=== PATIENT | male | born 1990 | race Caucasian/White ===

== ENCOUNTER 2016-08-14 20:00 | Emergency (ER) | payer OTHER ==
[2016-08-14] MEDS ORDERED: NAPROXEN 375 MG TABLET (FP) PO ONE (20:04)
[2016-08-14 20:09] VITALS: BP 150/65; PULSE 76; TEMP 99; BMI 38.5
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
--- NOTE | 2016-08-14 20:44 | PDOC ---
History of Present Illness - General Chief Complaint: Pain, Acute Stated Complaint: RT KNEE PAIN Time Seen by Provider: 08/14/16 20:04 History Source: Patient Exam Limitations: No Limitations - History of Present Illness Initial Comments: 08/14/16 21:34 08/14/16 21:41 Chief complaint: Right knee pain with increased bruising and swelling History of present illness: Patient is a 26-year-old male with a history of asthma here today complaining of worsening right medial knee pain since last night with increase bruising that is currently more of a reddish hue in the last few days and erythematous and warm to touch. Patient denies any chills or fever. Patient reports that he was originally hit in the right medial knee 6 days ago while playing basketball I another player's knee. He reports that the date of injury the area was tender and a bruise forearm that had turned yellowish purplish and was stating until this morning he noticed that the area was more pronounced of a reddish hue. Reports that area is very painful when he stands on it and is currently a 7 out of 10. Patient did not take anything for pain. Patient and his are concerned that the area has B, more painful and swollen and change in color and temperature of the area. Occurred: reports: other (6 days ago ) Severity: reports: moderate Pain Location: reports: lower extremity (rt. medial knee ) Method of Injury: Yes: direct blow (by another person knee playing basketball ) Modifying Factors: improves with: None Loss of Consciousness: no loss of consciousness Associated Symptoms (Fall): other (pain and bruising to medial rt. knee ) Past History - Past Medical History Allergies/Adverse Reactions: Allergies Allergy/AdvReac Type Severity Reaction Status Date / Time No Known Allergies Allergy Verified 08/14/16 20:06 Home Medications: Ambulatory Orders Cephalexin Monohydrate [Keflex -] 500 mg PO Q6H #28 capsule 08/14/16 Sulfamethoxazole/Trimethoprim [Bactrim Ds -] 1 tab PO BID #14 tablet MDD 2 08/14 Asthma: Yes - Psycho/Social/Smoking Cessation Hx Suicidal Ideation: No Smoking History: Never smoked Review of Systems - Review of Systems Able to Perform ROS?: Yes Constitutional: No: Symptoms Reported HEENTM: No: Symptoms Reported Respiratory: No: Symptoms reported Cardiac (ROS): No: Symptoms Reported ABD/GI: No: Symptoms Reported : No: Symptoms Reported Musculoskeletal: Yes: Joint Pain, Joint Swelling (rt. medial knee noted today ) Integumentary: Yes: Bruising (color is more erythematous today had been purplish and yellowish medial rt. knee), Change in Color, Other (warm to touch ) Neurological: No: Symptoms reported *Physical Exam - Vital Signs Last Vital Signs Temp Pulse Resp BP Pulse Ox 99 F 76 18 150/65 98 08/14/16 20:06 08/14/16 20:06 08/14/16 20:06 08/14/16 20:06 08/14/16 20:06 - Physical Exam General Appearance: Yes: Appropriately Dressed Respiratory/Chest: positive: Lungs Clear, Normal Breath Sounds Cardiovascular: positive: Regular Rhythm, Regular Rate, S1, S2 Vascular Pulses: Dorsalis-Pedis (R): 4+ Extremity: positive: Normal Capillary Refill, Normal Range of Motion (rt. knee ) , Tender (rt. medial knee), Swelling (rt. media knee ) Integumentary: positive: Warm (rt. medial knee area), Erythema (medial knee ), Swelling (rt.medial knee area ), Bruising Neurologic: positive: Normal Response, Respond to painful stimul (rt. knee area ), Responsive ED Treatment Course - LABORATORY CBC & Chemistry Diagram: 08/14/16 21:30 - Medications Given in the ED: ED Medications Discontinued Medications Generic Name Dose Route Start Last Admin Trade Name Freq PRN Reason Stop Dose Admin Naproxen 375 mg 08/14/16 20:04 08/14/16 20:12 Naprosyn - PO 08/14/16 20:05 375 mg ONCE ONE Administration Medical Decision Making - Medical Decision Making 08/14/16 21:44 Patient is a 26-year-old male with a history of asthma here today complaining of worsening right medial knee pain since last night with increase bruising that is currently more of a reddish hue in the last few days and erythematous and warm to touch. Patient denies any chills or fever. Patient reports that he was originally hit in the right medial knee 6 days ago while playing basketball I another player's knee. He reports that the date of injury the area was tender and a bruise forearm that had turned yellowish purplish and was stating until this morning he noticed that the area was more pronounced of a reddish hue. Reports that area is very painful when he stands on it and is currently a 7 out of 10. Patient did not take anything for pain. Patient and his are concerned that the area has B, more painful and swollen and change in color and temperature of the area. He does not have any calf pain. Due to patient's ability to move joint normally do not think that this is a knee joint. Right medial knee pain with swelling cellulitis Plan: cbc with diff bmp crp sed rate IV insert Unasyn 3 gm IV now Right knee x-ray ordered by Dr. Oscar no abnormality noted naprosyn 375mg po ordered by Dr. Oscar will discharge on bactrim DS 1 tab bid for 7 days keflex 500 mg q6 hr for 7 days return to ER if any chills increased redness of right medial knee area or increased pain or inability to bend knee Laboratory Tests 08/14/16 08/14/16 08/14/16 21:30 21:30 21:30 ESR 12 H Sodium 137 Potassium 3.9 Chloride 101 Carbon Dioxide 24 Anion Gap 12 BUN 10 Creatinine 1.1 Random Glucose 169 H Calcium 8.8 C-Reactive Protein 3.4 H 08/14/16 21:54 08/14/16 21:54 08/15/16 11:25 *DC/Admit/Observation/Transfer Diagnosis at time of Disposition: Cellulitis of knee, right Contusion of knee, right Qualifiers: Encounter type: initial encounter Qualified Code(s): S80.01XA - Contusion of right knee, initial encounter - Discharge Dispostion Disposition: HOME Condition at time of disposition: Stable - Prescriptions Prescriptions: Sulfamethoxazole/Trimethoprim [Bactrim Ds -] 1 tab PO BID #14 tablet MDD 2 Cephalexin Monohydrate [Keflex -] 500 mg PO Q6H #28 capsule - Patient Instructions Additional Instructions: Return here in 2 days for reevaluation or sooner if any fever, chills, worsening pain or decreased ability to move right knee Use crutches for ambulation Take Ibuprofen as needed for pain as directed by chemical supervisor Patient voiced understanding of discharge instructions and all questions were answered
[2016-08-14] MEDS ORDERED: AMPICILLIN NA/SULBACTAM NA 3 GM VIAL IM ONE (21:32)
[2016-08-14] MEDS ORDERED: AMPICILLIN NA/SULBACTAM NA 3 GM in SODIUM CHLORIDE 100 ML IVPB ONE (22:05)
[2016-08-14 22:15] LABS: CALCIUM 8.8 mg/dL (8.5-10.1); CREATININE 1.1 mg/dL (0.7-1.3)
== END 2016-08-14 23:48 | disposition home or self-care (01) ==
LOC: JERFT 20:00 → JER 20:00 → JERFT 23:48
DX: S80.01XA Contusion of right knee, initial encounter (principal); L03.115 Cellulitis of right lower limb; W50.0XXA Accidental hit or strike by another person, initial encounter; Y93.67 Activity, basketball; Y92.310 Basketball court as the place of occurrence of the external cause; Y99.8 Other external cause status
CPT/HCPCS: 36415; 73560-TC-RT; 80048; 85651; 86140; 96365; 99281-25

== ENCOUNTER 2016-08-16 18:18 | Emergency (ER) | payer OTHER ==
[2016-08-16 19:49] VITALS: BP 139/84; PULSE 84; TEMP 97.7; BMI 38.5
--- NOTE | 2016-08-16 21:14 | PDOC ---
*Physical Exam - Vital Signs Last Vital Signs Temp Pulse Resp BP Pulse Ox 97.7 F 84 14 139/84 98 08/16/16 19:46 08/16/16 19:46 08/16/16 19:46 08/16/16 19:46 08/16/16 19:46 - Physical Exam General Appearance: Yes: Appropriately Dressed. No: Apparent Distress HEENT: positive: TMs Normal, Pharynx Normal Respiratory/Chest: positive: Lungs Clear, Normal Breath Sounds. negative: Chest Tender Integumentary: positive: Other (decreased redness now; feeling better) Medical Decision Making - Medical Decision Making 08/16/16 21:11 US= no fluid collection noted; will have pt return 2 days for repeat evaluation ; told to follow redness line progression *DC/Admit/Observation/Transfer Diagnosis at time of Disposition: Cellulitis Qualifiers: Site of cellulitis: extremity Site of cellulitis of extremity: lower extremity Laterality: right Qualified Code(s): L03.115 - Cellulitis of right lower limb - Discharge Dispostion Disposition: HOME Condition at time of disposition: Stable Admit: No - Patient Instructions Printed Discharge Instructions: DI for Wound Infection Additional Instructions: Please return Sunday for reevaluation; elevate leg at all times; if not improve return for admission
== END 2016-08-16 21:21 | disposition home or self-care (01) ==
LOC: JER 18:18
DX: L03.115 Cellulitis of right lower limb (principal)
CPT/HCPCS: 76882; 99281-25

== ENCOUNTER 2016-08-18 20:55 | Emergency (ER) | payer OTHER ==
[2016-08-18 21:14] VITALS: BP 151/81; PULSE 81; TEMP 98.5; BMI 41.1
--- NOTE | 2016-08-18 22:30 | PDOC ---
History of Present Illness - General History Source: Patient, Old Records Exam Limitations: No Limitations <Ana Rodríguezel - Last Filed: 08/18/16 22:30> - General History Source: Patient, Old Records Exam Limitations: No Limitations - History of Present Illness Initial Comments: 08/18/16 22:56 The patient is a 26 year old male, with a significant past medical history of asthma, who presents to the emergency department for a revisit for right knee cellulitis. The patient injured his right knee when playing basketball on 2016. He states that his right knee was bruised after the incident but there were no signs of cellulitis until 6 days after the injury (08/14/2016) when he woke up and his right knee was swollen and erythematous. He was evaluated in the ED on 08/14/2016 and was started on Bactrim and Keflex for right knee cellulitis. The patient returned to the ED on 08/16/2016 for a wound check revisit and again today. The patient has been taking the antibiotics as prescribed and states that he is feeling better today, with improvement of symptoms. The patient denies fever or chills. <Sharon Yanez - Last Filed: 08/18/16 22:59> - General Chief Complaint: Revisit,Wound Recheck Stated Complaint: REVISIT Time Seen by Provider: 08/18/16 21:47 Past History - Past Medical History Asthma: Yes Other medical history: cellulitis Rt knee - Psycho/Social/Smoking Cessation Hx Suicidal Ideation: No Smoking History: Current every day smoker Number of Cigarettes Smoked Daily: 4 Information on smoking cessation initiated: No Hx Alcohol Use: No Drug/Substance Use Hx: Yes (xtacy, marjuana, cocaine) <Cameron Rodríguez - Last Filed: 08/18/16 22:30> <Sharon Yanez - Last Filed: 08/18/16 22:59> - Past Medical History Allergies/Adverse Reactions: Allergies Allergy/AdvReac Type Severity Reaction Status Date / Time No Known Allergies Allergy Verified 08/18/16 21:01 Home Medications: Ambulatory Orders Cephalexin Monohydrate [Keflex -] 500 mg PO Q6H #12 capsule 08/18/16 Sulfamethoxazole/Trimethoprim [Bactrim DS -] 1 tab PO BID #9 tablet MDD 2 Review of Systems - Review of Systems Able to Perform ROS?: Yes Comments:: 08/18/16 22:57 GENERAL/CONSTITUTIONAL: No fever or chills. No weakness. HEAD, EYES, EARS, NOSE AND THROAT: No change in vision. No ear pain or discharge. No sore throat. MUSCULOSKELETAL: No joint or muscle pain. No neck or back pain. SKIN: +Right knee cellulitis. NEUROLOGIC: No headache, vertigo, loss of consciousness, or change in strength/ sensation. <Sharon Yanez - Last Filed: 08/18/16 22:59> *Physical Exam - Vital Signs Last Vital Signs Temp Pulse Resp BP Pulse Ox 98.5 F 81 16 151/81 98 08/18/16 21:07 08/18/16 21:07 08/18/16 21:07 08/18/16 21:07 08/18/16 21:07 <Cameron Rodríguez - Last Filed: 08/18/16 22:30> - Vital Signs Last Vital Signs Temp Pulse Resp BP Pulse Ox 98.5 F 81 16 151/81 98 08/18/16 21:07 08/18/16 21:07 08/18/16 21:07 08/18/16 21:07 08/18/16 21:07 - Physical Exam Comments: 08/18/16 22:57 GENERAL: Awake, alert, and fully oriented, in no acute distress. HEAD: No signs of trauma. EXTREMITIES: Normal range of motion. No clubbing or cyanosis. No cords NEUROLOGICAL: Cranial nerves II through XII grossly intact. Normal speech, normal gait. SKIN: Right knee, 11cm x 9cm area of erythema, 5cm x 5cm area of mild induration. No fluctuance. <Sharon Yanez - Last Filed: 08/18/16 22:59> Medical Decision Making - Medical Decision Making 08/18/16 22:35 A portion of this note was documented by scribe services under my direction. I have reviewed the details of the note, within reason, and agree with the documentation with the following case summary and management plan written by me. Patient treated in the ED. Nursing notes are reviewed and incorporated into the medical decision-making. Vital signs reviewed. Peripheral IV access obtained by the nurse, laboratory studies are drawn and sent, reviewed and interpreted by myself. Vital Signs Temp Pulse Resp BP Pulse Ox 98.5 F 81 16 151/81 98 08/18/16 21:07 08/18/16 21:07 08/18/16 21:07 08/18/16 21:07 08/18/16 21:07 26-year-old male with history of asthma returns to ED for wound check of his right knee cellulitis. The right knee was reviewed by me and examined. The knee looks significant improvement even from prior visit. However, the patient only has 2 more days of antibiotics. It extended antibiotics from 7 days to 10 days. Return precautions given. I instructed the patient to return to the ER or to his doctor for wound check. I discussed the physical exam findings, ancillary test results and final diagnoses with the patient. I answered all of the patient's questions. The patient was satisfied with the care received and felt comfortable with the discharge plan and treatment plan. The patient will call their primary care physician within 24 hours to arrange follow-up and will return to the Emergency Department with any new, persistant or worsening symptoms. <Cameron Rodríguez - Last Filed: 08/18/16 22:30> *DC/Admit/Observation/Transfer - Discharge Dispostion Admit: No <Cameron Rodríguez - Last Filed: 08/18/16 22:30> - Attestations Scribe Attestion: 08/18/16 22:38 Documentation prepared by Sharon Yanez, acting as director biomedical engineering for Cameron Rodríguez MD. <Sharon Yanez - Last Filed: 08/18/16 22:59> Diagnosis at time of Disposition: Cellulitis Qualifiers: Site of cellulitis: extremity Site of cellulitis of extremity: lower extremity Laterality: right Qualified Code(s): L03.115 - Cellulitis of right lower limb - Discharge Dispostion Disposition: HOME Condition at time of disposition: Stable - Prescriptions Prescriptions: Sulfamethoxazole/Trimethoprim [Bactrim DS -] 1 tab PO BID #9 tablet MDD 2 Cephalexin Monohydrate [Keflex -] 500 mg PO Q6H #12 capsule - Patient Instructions Printed Discharge Instructions: DI for Cellulitis -- Adult Additional Instructions: I am extending your antibiotics from 7 days to 10 days. Please continue taking the bactrim and keflex as prior. Please return to the ED or to your doctor on your last day of antibiotics for skin/wound checkup.
== END 2016-08-18 23:06 | disposition home or self-care (01) ==
LOC: JER 20:55
DX: Z09 Encounter for follow-up examination after completed treatment for conditions other than malignant neoplasm (principal); L03.115 Cellulitis of right lower limb
CPT/HCPCS: 99281-25; 99282-25

== ENCOUNTER 2016-08-26 14:32 | Emergency (ER) | payer OTHER ==
[2016-08-26 14:54] VITALS: BP 155/90; PULSE 93; TEMP 98.2; BMI 38.5
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
== END 2016-08-26 17:04 | disposition home or self-care (01) ==
LOC: JERFT 14:32
DX: L03.115 Cellulitis of right lower limb (principal)
CPT/HCPCS: 99281-25